=== PATIENT | male | born 1990 | race Caucasian/White ===

== ENCOUNTER 2016-05-17 17:20 | Emergency (ER) | payer SELFPAY ==
[2016-05-17] MEDS ORDERED: NORCO 5/325 PO ONE (18:57)
[2016-05-17] MEDS ORDERED: TORADOL IM ONE (18:58)
--- NOTE | 2016-05-17 19:05 | Cat Scan Report ---
FINAL REPORT EXAM: CT HEAD/BRAIN WO CON HISTORY: FALL, PAIN TECHNIQUE: Noncontrast serial axial images from skull base to vertex PRIORS: None. FINDINGS: There is soft tissue swelling in the scalp over anterior right frontal convexity. There is no mass effect or midline shift. There are no abnormal intra or extra-axial fluid collections. Cortical sulci and lateral ventricles are within normal limits for size and configuration. Basilar cisterns are patent. No acute intracranial hemorrhage is identified. Mucosal thickening is seen in the maxillary sinuses. There is mucosal thickening in the right frontal sinus as well. No acute osseous abnormality is identified. IMPRESSION: 1. No acute intracranial hemorrhage is identified. 2. Soft tissue swelling is seen in the scalp over the right frontal convexity. No underlying fracture is identified.
--- NOTE | 2016-05-17 19:09 | Cat Scan Report ---
FINAL REPORT EXAM: CT CERVICAL SPINE WO CON HISTORY: FALL, PAIN TECHNIQUE: Noncontrast serial axial images through the cervical spine with coronal and sagittal reconstruction. PRIORS: None. FINDINGS: No gross abnormality is seen in the visualized portion of the brain. Mastoid air cells are well aerated. Prevertebral soft tissues appear within normal limits. Visualized portion of the lung apices are clear. No acute fracture or anterolisthesis is identified. IMPRESSION: 1. No acute fracture or anterolisthesis is identified.
--- NOTE | 2016-05-17 20:14 | Emergency Department Report ---
ED Fall HPI - General Chief Complaint: Fall Stated Complaint: FELL ARM AND BODY INJURIES Time Seen by Provider: 05/17/16 18:50 Source: patient Mode of arrival: Ambulatory Limitations: Language Barrier - History of Present Illness Initial Comments: 25-year-old male with no snuff can past medical history presents to the hospital status post fall about 7-8 feet. Patient was cleaning gutters and fell striking the right side of his forehead on cement. No LOC reported. Patient denies headache or neck pain. He apparently complains of right wrist pain and patient is right hand dominant. Right wrist pain is rated 10/10 in intensity, pain as aching throbbing, constant, worse with movement and palpation. Positive swelling and deformity noted. Patient also complains of right knee pain. Tetanus up-to-date within 10 years. - Related Data Previous Rx's Medication Instructions Recorded Last Taken Type HYDROcodone/APAP 5-325 [Independence 1 each PO Q6HR PRN #20 tablet 05/17/16 Unknown Rx 5/325] Ibuprofen [Motrin] 800 mg PO Q8HR PRN #30 tablet 05/17/16 Unknown Rx Allergies Allergy/AdvReac Type Severity Reaction Status Date / Time No Known Allergies Allergy Unverified 05/17/16 18:02 ED Review of Systems ROS: Stated complaint: FELL ARM AND BODY INJURIES Other details as noted in HPI Comment: All other systems reviewed and negative Other: Constitutional: No fevers chills Eyes: No eye pain visual changes ENT: No ear pain or throat pain Neck: Denies pain Respiratory: Denies cough wheezing shortness of breath Cardiovascular: Denies chest pain, palpitations, syncope GI: Denies abdominal pain, nausea, vomiting : Denies dysuria, urinary frequency, or urgency Musculoskeletal: As per HPI Skin: Denies rash, lesions, erythema Neurologic: Denies headache, numbness, weakness Psychiatric: Denies suicidal ideation, hallucinations ED Past Medical Hx - Past Medical History Previous Medical History?: No - Surgical History Past Surgical History?: No - Social History Smoking Status: Current Every Day Smoker Substance Use Type: Alcohol - Medications Home Medications: Home Medications Medication Instructions Recorded Confirmed Last Taken Type HYDROcodone/APAP 5-325 [Independence 1 each PO Q6HR PRN #20 tablet 05/17/16 Unknown Rx 5/325] Ibuprofen [Motrin] 800 mg PO Q8HR PRN #30 tablet 05/17/16 Unknown Rx ED Physical Exam - General Limitations: No Limitations - Other Other exam information: General: No limitations, patient is alert in no acute distress Head exam: Right forehead abrasion Eyes exam: Normal appearance ENT: Moist mucous membrane, normal oropharynx Neck exam: Normal inspection, full range of motion, no meningismus nontender Respiratory exam: Clear to auscultation bilateral, no wheezes, rales, crackles Cardiovascular: Normal rate and rhythm, normal heart sounds Abdomen: Soft, nondistended, and nontender, with normal bowel sounds, no rebound, or guarding Extremity: Erythema to range of motion right wrist with swelling and deformity. 2+ radial pulse. Sensation intact distally. Right knee abrasion with full range of motion Back: Normal Inspection, full range of motion, no tenderness Neurologic: Alert, oriented x3, cranial nerves intact, no motor or sensory deficit Psychiatric: normal affect, normal mood Skin: Warm, dry, intactMinimal physical exam ED Course Vital Signs 05/17/16 18:02 Temperature 99.2 F Pulse Rate 63 Respiratory 20 Rate Blood Pressure 154/97 O2 Sat by Pulse 100 Oximetry - Reevaluation(s) Reevaluation #1: 05/17/16 20:27 Patient received Independence and Toradol for pain. After splint placement patient complained of increased pain there for Percocet also ordered ED Medical Decision Making - Radiology Data Radiology results: report reviewed, image reviewed interpreted by me: Right wrist x-ray distal comminuted right radius fracture. Right knee x-ray: No acute findings CT head: No acute findings CT cervical spine: No acute findings - Medical Decision Making Since patient had a significant mechanism with associated head trauma CT head and neck ordered. No acute findings identified. Patient received a wrist splint for fracture. - Differential Diagnosis fracture, contusion, sprain, intracranial hemorrhage Critical Care Time: No Critical care attestation.: If time is entered above; I have spent that time in minutes in the direct care of this critically ill patient, excluding procedure time. ED Disposition Clinical Impression: Fall, Closed head injury, Right wrist fracture Disposition: DISCHARGED TO HOME OR SELFCARE Is pt being admited?: No Does the pt Need Aspirin: No Condition: Stable Instructions: Wrist Fracture in Adults (ED), Minor Head Injury (ED) Additional Instructions: Taking the medication as needed for pain. Do not drive while taking the Independence/ hydrocodone because it may cause drowsiness. Follow-up with the orthopedic doctor provided. Return if symptoms worsen. [place] la medicacin segn sea necesario para el dolor. No conduzca mientras barbie Independence / hydrocodone porque puede causar somnolencia. Seguimiento con el m dico ortopedista proporcionado. Regrese si los sntomas empeoran. Prescriptions: HYDROcodone/APAP 5-325 [Independence 5/325] 1 each PO Q6HR PRN #20 tablet PRN Reason: Pain Ibuprofen [Motrin] 800 mg PO Q8HR PRN #30 tablet PRN Reason: Pain Referrals: MERLE MALLORY MD [Staff Physician] - 3-5 Days Time of Disposition: 20:40
[2016-05-17] MEDS ORDERED: PERCOCET 5/325 PO ONE (20:25)
[2016-05-17 21:00] VITALS: BP 146/96
--- NOTE | 2016-05-18 10:45 | XRay Report ---
RIGHT KNEE THREE VIEWS: 05/17/16 17:20:00 CLINICAL: Fall off 7-8 feet. Right knee pain. FINDINGS: Normal bones and joints. No fracture or dislocation. No joint effusion.Normal soft tissues. No joint effusion. IMPRESSION: Normal.
--- NOTE | 2016-05-18 10:47 | XRay Report ---
RIGHT WRIST FOUR VIEWS: 05/17/16 18:17:00 CLINICAL: Fall and right wrist pain. FINDINGS: Comminuted mildly displaced fracture of the distal radius with extension into the radiocarpal joint. Slight volar angulation at the fracture site. The ulna is intact. The carpal bones are intact. The metacarpals are intact. Soft tissue swelling at the wrist but no foreign body or soft tissue air. IMPRESSION: Acute closed comminuted posttraumatic mildly displaced fracture of the distal radius with intra-articular extension.
== END 2016-05-17 20:57 | disposition home or self-care (01) ==
LOC: ED 17:20
DX: S52.501A Unspecified fracture of the lower end of right radius, initial encounter for closed fracture (principal); F17.200 Nicotine dependence, unspecified, uncomplicated; S09.90XA Unspecified injury of head, initial encounter; W18.30XA Fall on same level, unspecified, initial encounter; Y93.9 Activity, unspecified; Y92.9 Unspecified place or not applicable; Y99.9 Unspecified external cause status
CPT/HCPCS: 29125; 70450; 72125; 73110; 73562; 96372; 99284; J1885